=== PATIENT | female | born 1975 | race Two or more races ===

== ENCOUNTER 2016-09-28 15:19 | Emergency (ER) | payer MEDICAID ==
[~2016-09-28] VITALS: Ht 172.7 cm; Wt 52.2 kg
[2016-09-28 15:34] VITALS: BP 127/71
== END 2016-09-28 16:03 | disposition home or self-care (01) ==
LOC: ER 15:22
DX: L03.116 Cellulitis of left lower limb (principal); L03.115 Cellulitis of right lower limb; F10.20 Alcohol dependence, uncomplicated; F17.210 Nicotine dependence, cigarettes, uncomplicated
CPT/HCPCS: A4606; Z7610